=== PATIENT | male | born 1945 | race Caucasian/White ===

== ENCOUNTER 2020-01-04 10:15 | Day surgery (SDC) | payer MEDICARE, BC ==
[2020-01-02 11:30] LABS: HEMATOCRIT 41.2 % (42.0-54.0); HEMOGLOBIN 14.1 g/dL (13.5-17.5); MCH 31.8 pg (26.0-34.0); MCHC 34.2 g/dL (31.0-37.0); MEAN PLATELET VOLUME 10.3 fL (7.4-10.4); RBC 4.43 10x6/uL (4.20-6.10); RDW 14.1 % (11.5-14.5); WBC 7.4 10x3/uL (4.8-10.8)
[~2020-01-04] VITALS: Ht 193 cm; Wt 112.5 kg
--- NOTE | ~2020-01-04 | OP ---
PATIENT NAME: MIKE GLEASON MEDICAL RECORD: [id number] :41 LOCATION:[facility] ADMISSION DATE: SURGEON: CAYETANO OLIVA DPM DATE OF OPERATION: 01/04/2020 PREOPERATIVE DIAGNOSIS: Enlarged bone with nonhealing ulcer, plantar left hallux. POSTOPERATIVE DIAGNOSIS: Enlarged bone with nonhealing ulcer, plantar left hallux. PROCEDURE: Removal of enlarged bone, plantar left hallux. ANESTHESIA: General with local infiltrate utilizing lidocaine and Marcaine plain, 3 cc around the left hallux. HEMOSTASIS: Left ankle Esmarch. PREOPERATIVE DETAILS: The patient was brought to the hospital today due to a nonhealing ulcer on the plantar aspect of his left hallux. This ulcer has been there for several months and is not healing. To avoid possibility of bone infection, we have scheduled him today for removal of enlarged bone of the plantar left hallux. The patient was taken to the operating room and placed on the operating table in supine position. This was followed by induction of general anesthesia and infiltration of local anesthetic. The left extremity was then prepped and draped in usual aseptic technique followed by exsanguination and inflation of tourniquet. A 15 blade was used to create a 3 cm linear incision along the medial aspect of the left hallux. The incision was deepened down through subcutaneous tissue to the medial IPJ. An incision was made in the capsule. The plantar IPJ was exposed. At this time, a sagittal saw was used to resect the enlargement. Bone rasp was used to smooth it. Good reduction of the enlargement was noted clinically. The wound was flushed. The deep tissue including the joint capsule was closed with 2-0 Vicryl. The skin was then closed with 4-0 nylon in a running interlocking technique. Adaptic, 4 x 4 and Conform were used to dress the wound followed by Coban. The Esmarch was removed. POSTOPERATIVE DETAILS: The patient tolerated the procedure well and left the OR with vital signs stable and vascular status at preoperative levels. The patient was transported to recovery per anesthesia in stable condition. TRANSINT:[id number] Voice Confirmation ID: [id number] DOCUMENT ID: [id number] CAYETANO OLIVA DPM CC: [id number] DICTATION DATE: 01/04/20 0949 DELIVERY RN: 01/04/20 1257 PRE [facility] [address] [facility] [place] [address]
[2020-01-04 06:36] VITALS: BP 121/70; Ht 193 cm; Wt 112.5 kg
--- NOTE | 2020-01-04 10:11 | NUR ---
1002 - PT AWAKENING, OPA REMOVED
[~2020-01-04 10:15] MED LIST: BAYER CHEWABLE81 MG PO; CENTRUM MEN'S1 EACH PO; LIPITOR40 MG PO; LISINOPRIL30 MG PO; NEURONTIN600 MG PO; OMEPRAZOLE40 MG PO; OXYCONTIN10 MG PO; PAMELOR 25 MG C25 MG PO; SYNTHROID175 MCG PO
--- NOTE | 2020-01-04 11:14 | NUR ---
VSS.DENIES PAIN. DRESSING CDI. CAP REFILL WNL.NO N/V. TOLERATED JUICE AND PUDDING. REMOVED IV WITH CATH INTACT, DISPOSED INTO SHARPS,COVERED WITH GUAZE,SECURED WITH MEDIPORE TAPE.
--- NOTE | 2020-01-04 11:15 | NUR ---
CONTACTED FOR TRANSPORTATION HOME. SHE SHOULD BE HERE IN 20 MINUTES.
--- NOTE | 2020-01-04 14:46 | NUR ---
1145-DISCHARGE CRITERIA MET. REVIEWED POST OPERATIVE INSTRUCTIONS, FOLLOW UP APPOINTMENNT, AND PRESCRIPTION. VERBALIZED UNDERSTANDING. ESCORTED OUT VIA W/C WITH SPOUSE AWAITING TO DRIVE HOME. DRESSING CDI. CAP REFILL WNL. VERY PLEASANT
== END 2020-01-04 11:45 | disposition home or self-care (01) ==
LOC: D.OPS 10:15
PROVIDERS: Anesthesiology; ATTEND Podiatrist
DX: M20.5X2 Other deformities of toe(s) (acquired), left foot (principal); Q79.9 Congenital malformation of musculoskeletal system, unspecified; M77.52 Other enthesopathy of left foot and ankle; L97.529 Non-pressure chronic ulcer of other part of left foot with unspecified severity; I10 Essential (primary) hypertension